=== PATIENT | male | born 1945 ===

== ENCOUNTER → 2024-09-25 10:10 | Outpatient (REF) | payer MEDICARE, OTHER, SELFPAY | LOC: RAD 10:10 | PROVIDERS: ATTENDING PHYSICIAN Internal Medicine | DX: Z85.820 Personal history of malignant melanoma of skin (principal); D18.03 Hemangioma of intra-abdominal structures | CPT/HCPCS: 71046 ==

== ENCOUNTER → 2024-10-10 07:28 | Outpatient (REF) | payer MEDICARE, OTHER, SELFPAY ==
[2024-10-10 10:00] LABS: ALT (SGPT) 61 U/L (0-50); AST (SGOT) 33 U/L (17-59); Albumin 3.6 g/dl (3.5-5.0); Alkaline Phosphatase 68 U/L (38-126); Blood Urea Nitrogen 26 mg/dl (9-20); Calcium 9.8 mg/dl (8.4-10.2); Carbon Dioxide 31 mmol/L (22-30); Chloride 105 mmol/L (98-107); Glucose 89 mg/dl (70-99); LDH 208 U/L (120-246); Potassium 4.5 mmol/L (3.5-5.1); Sodium 140 mmol/L (135-145); Total Bilirubin 0.6 mg/dl (0.2-1.3); Total Protein 5.8 g/dl (6.3-8.2); eGFR > 60.00
== END ==
LOC: RAD 07:28
PROVIDERS: ATTENDING PHYSICIAN Internal Medicine
DX: Z85.820 Personal history of malignant melanoma of skin (principal); D18.03 Hemangioma of intra-abdominal structures
CPT/HCPCS: 36415; 76700; 80053; 83615

== ENCOUNTER → 2025-01-08 07:34 | Outpatient (REF) | payer MEDICARE, OTHER, SELFPAY ==
[2025-01-08 09:12] LABS: Hematocrit 43.6 % (39.0-52.0); Hemoglobin 14.9 g/dL (13.0-18.0); Mean Corp Hgb Conc. 34.2 g/dL (33.0-37.0); Mean Corpuscular Volume 86.2 fL (80.0-94.0); Platelet Count 171 10^3/uL (130-400); Red Cell Dist. Width 13.4 % (11.5-14.5)
[2025-01-08 09:54] LABS: ALT (SGPT) 30 U/L (0-50); AST (SGOT) 27 U/L (17-59); Albumin 4.2 g/dl (3.5-5.0); Alkaline Phosphatase 61 U/L (38-126); Blood Urea Nitrogen 22 mg/dl (9-20); Calcium 9.5 mg/dl (8.4-10.2); Carbon Dioxide 25 mmol/L (22-30); Chloride 107 mmol/L (98-107); Glucose 85 mg/dl (70-99); Potassium 4.5 mmol/L (3.5-5.1); Sodium 138 mmol/L (135-145); Total Protein 6.4 g/dl (6.3-8.2); eGFR > 60.00
== END ==
LOC: SDSPAT 07:34
PROVIDERS: ATTENDING PHYSICIAN Orthopaedic Surgery Orthopaedic Surgery of the Spine; FAMILY PHYSICIAN Internal Medicine
DX: Z01.818 Encounter for other preprocedural examination (principal)
CPT/HCPCS: 36415; 80053; 85027; 86850; 86900; 86901; 87070; 93005

== ENCOUNTER 2025-01-15 06:21 | Day surgery (SDC) | payer MEDICARE, OTHER, SELFPAY ==
[2025-01-08 07:46] VITALS: BMI 24.6
--- NOTE | 2025-01-08 15:23 | PTCARENOTE ---
Patients 7/[address] ECG [address] Cuellar, no additional interventions required
[2025-01-09 15:35] VITALS: BMI 24.6
[2025-01-15] VITALS (9 sets, daily range): BP systolic 106–141; BP diastolic 54–75; BMI 24.6
[2025-01-15] MEDS: METHOCARBAMOL 1500 MG PO (07:42)
[2025-01-15] MEDS: LYRICA 150 MG PO (07:42)
[2025-01-15] MEDS: TYLENOL 1000 MG PO (07:42)
[2025-01-15] MEDS: EMEND 40 MG PO (07:43)
[2025-01-15] MEDS: NORMOSOL-R/PLASMALYTE-A 1000 IV (07:43)
[2025-01-15] MEDS: CELEBREX 200 MG PO (07:43)
[2025-01-15] MEDS: TRANSDERM-SCOP 1 PATCH TRANSDERM (07:43)
== END 2025-01-15 13:05 | disposition home or self-care (01) ==
LOC: SDS 06:21
PROVIDERS: ATTENDING PHYSICIAN Orthopaedic Surgery Orthopaedic Surgery of the Spine
DX: M48.061 Spinal stenosis, lumbar region without neurogenic claudication (principal)
CPT/HCPCS: 63047; 72020; 86900; 86901

== ENCOUNTER → 2025-03-07 10:44 | Outpatient (REF) | payer MEDICARE, OTHER, SELFPAY ==
[2025-03-07 12:14] LABS: ALT (SGPT) 27 U/L (0-50); AST (SGOT) 26 U/L (17-59); Albumin 4.2 g/dl (3.5-5.0); Alkaline Phosphatase 65 U/L (38-126); Blood Urea Nitrogen 22 mg/dl (9-20); Calcium 9.9 mg/dl (8.4-10.2); Carbon Dioxide 30 mmol/L (22-30); Chloride 106 mmol/L (98-107); Glucose 79 mg/dl (70-99); Potassium 4.8 mmol/L (3.5-5.1); Sodium 138 mmol/L (135-145); Total Protein 6.4 g/dl (6.3-8.2); eGFR > 60.00
[2025-03-07 12:31] LABS: Vitamin D, 25-OH*** 53.3 ng/mL (30-80)
[2025-03-07 12:45] LABS: TSH 2.22 uIU/ml (0.47-4.68)
== END ==
LOC: REG 10:44
PROVIDERS: ATTENDING PHYSICIAN Internal Medicine; FAMILY PHYSICIAN Internal Medicine
DX: E07.9 Disorder of thyroid, unspecified (principal); E21.5 Disorder of parathyroid gland, unspecified; E56.9 Vitamin deficiency, unspecified; K90.0 Celiac disease; M81.0 Age-related osteoporosis without current pathological fracture
CPT/HCPCS: 80053; 82306; 82784; 83516; 83970; 84100; 84155; 84165; 84270; 84402; 84403; 84443; 86231

== ENCOUNTER → 2025-03-13 10:17 | Outpatient (REF) | payer MEDICARE, OTHER, SELFPAY ==
[2025-03-13 11:43] LABS: 24 Hour Urine Total Volume 1100 ml
== END ==
LOC: REG 10:17
PROVIDERS: ATTENDING PHYSICIAN Internal Medicine; FAMILY PHYSICIAN Internal Medicine
DX: E07.9 Disorder of thyroid, unspecified (principal); E21.5 Disorder of parathyroid gland, unspecified; E56.9 Vitamin deficiency, unspecified; K90.0 Celiac disease; M81.0 Age-related osteoporosis without current pathological fracture
CPT/HCPCS: 81050; 82340; 82530